=== PATIENT | female | born 1985 | race Two or more races ===

== ENCOUNTER 2024-04-03 13:42 | Emergency (ER) | payer MEDICAID, SELFPAY ==
[2024-04-03 14:01] VITALS: BP 169/97; PULSE 108; RESP 18; TEMP 37.1; O2SAT 97; BMI 32.8
--- NOTE | 2024-04-03 14:30 | PD.EDADULT ---
ED General RME/HPI General Chief complaint: Flu Like Symptoms Stated complaint: CHEST PAIN DUE TO COUGH Time Seen by Provider: 04/03/24 14:29 Arrival date/time: 04/03/24 13:42 CC: Cough runny nose sore throat HPI ongoing for the past 4 days no other family members are ill with similar symptoms denies headache fever chills diarrhea. Is a diabetic but is not taking medicines and not monitoring her sugars. Patient is nontoxic-appearing and not in any acute distress. Related Data Previous Rx's ?Medication ?Instructions ?Recorded metformin 500 mg tablet 500 mg PO BIDWMEAL #60 tabs 06/26/22 cetirizine 5 mg-pseudoephedrine ER 1 tab PO BID #14 tabs 04/03/24 120 mg tablet,extended release,12hr guaifenesin 100 mg/5 mL oral liquid 200 mg (10 mL) PO Q4H PRN cough 04/03/24 #473 mL metformin 1,000 mg tablet 1,000 mg PO BID #30 tabs 04/03/24 Allergies Allergy/AdvReac Type Severity Reaction Status Date / Time No Known Allergies Allergy Verified 04/03/24 13:44 Review of Systems Review of Systems Narrative Review of Systems: GEN: No fever, no chills, no weight loss EYES: No discharge, no visual changes, no pain HEENT: No ear pain, + congestion, + sore throat PULM: No shortness of breath, + cough, no congestion CV: No chest pain, no dyspnea on exertion, no palpitations GI: No nausea, no vomiting, no diarrhea, no pain, no constipation : No frequency, no urgency, no dysuria MUSC/SKEL: No joint pain, no back pain SKIN: No rash PSYCH: No hallucinations, no depression HEME/LYMPH: No easy bleeding or bruising tendencies NEURO: No weakness, no headache Past Medical History Past Medical History NEUROLOGIC: Negative Neurological Disorders CARDIAC: Positive Hypertension; Negative Cardiac Disorders or Congestive Heart Failure RESPIRATORY: Negative Chronic Obstructive Pulmonary Disease (COPD) GASTROINTESTINAL: Positive Gastrointestinal Disorders GENITOURINARY: Negative Genitourinary Disorders or Renal Disease MUSCULOSKELETAL: Negative Musculoskeletal Disorders ENDOCRINE: Positive Diabetes Mellitus Type 2; Negative Endocrine Disorders or Diabetes Mellitus Type 1 HEMATOLOGIC: Negative Blood Disorders OTHER HISTORY: Negative Autoimmune Disease Social History SMOKING STATUS: Current every day smoker SUBSTANCE USE: marijuana and crack/cocaine (Former) ED Exam Narrative Physical exam: [General: Obese not in any acute distress Head normocephalic HEENT: Eyes pupils are PERRLA EOMs are intact mouth: [place] moist membranes uvula is midline tonsils are flat no exudative patches posterior pharynx is nonerythematous nonedematous swallow symmetrical phonation is normal. Nose: No rhinorrhea or otorrhea mild erythema around the nares. Ears EACs are clear, TMs are visible no erythema or edema positive cone of light. Within acceptable limits Neck is supple nontender, swallow symmetrical phonation is normal Chest equal chest rise nontender to palpation Respiratory: Clear to auscultation no wheezes crackles or rubs CV: Rate rhythm is regular no murmurs rubs or clicks Abdomen is distended secondary to body habitus soft nontender no masses positive bowel sounds all 4 quadrants Back: No CVA tenderness no spinous process tenderness from cervical spine thoracic and lumbar spine Skin: Intact no petechiae rash induration ulceration or crepitus Extremities: Moving all extremity against resistance cap refill less than 2 seconds neurosensory intact Neuro: Awake alert oriented x3 Glascow coma 15 no focal deficits] Course Quality Measures none Vital Signs Vital signs: Vital Signs Temperature 98.7 F 04/03/24 14:01 Pulse Rate 108 H 04/03/24 14:01 Respiratory Rate 18 04/03/24 14:01 Blood Pressure 169/97 H 04/03/24 14:01 Pulse Oximetry (%) 97 04/03/24 14:01 Oxygen Delivery Method Room Air 04/03/24 14:01 MDM Patient data External records reviewed:: [facility] previous records Clinical information provided by:: patient Social determinants that could affect healthcare access:: none Patient has the following chronic illnesses:: Diabetes uncontrolled How is presenting disease/condition affected by chronic disease/condition?: uneffected by Evaluation data The following diagnostics were reviewed and interpreted by me:: other (specify) (None) Lab and/or radiology exams considered but not ordered:: None Interpretation Summary: None Medications Medications considered but not ordered:: None Medication administrations:: None Consultations Consultation(s) initiated? (list below): No Diagnosis Differential Diagnosis ED Complaint MDM: Strep pharyngitis viral URI pneumonia Most likely diagnosis given after review of the tests above:: URI Admission Indicated Admission indicated?: not indicated Explain why admission is indicated or not indicated:: Stable for outpatient follow-up Admission Request Was there a request for admission?: No Disposition Plan Disposition Plan: Discharge Discharge Attestation Discharge Attestation: The patient and all family members were given an opportunity to ask questions and understood the discharge instructions. Discharge instructions specifically effects, indications for sooner follow up or return to the emergency department, and the expected course of current diagnosis. Patient condition: Stable Medical Decision Making Differential Diagnosis Differential Diagnosis: Strep pharyngitis viral URI pneumonia Discharge Plan Plan Patient Disposition: HOME (Self Care) Patient condition on transfer: Stable Prescriptions/Referrals Prescriptions/Med Rec: New metformin 1,000 mg tablet 1,000 mg PO BID Qty: 30 1RF cetirizine-pseudoephedrine 5-120 mg tablet extended release 12 hr 1 tab PO BID Qty: 14 0RF guaifenesin 100 mg/5 mL liquid 200 mg PO Q4H PRN (Reason: cough) Qty: 473 0RF No Action metformin 500 mg tablet 500 mg PO BIDWMEAL Qty: 60 0RF Problem List Clinical Impression: URI (upper respiratory infection) Patient/Caregiver Discharge Instructions Education Materials: ED URI, Viral, No Abx (Adult) Print Language: Romansh Stand Alone Forms: Anabella Award Info., Work/School Release, Patient Portal Info Letter MD Attestation Attestation The patient was seen by the midlevel practitioner. I, the co-signing physician, was present during the entire ER visit. While I did not physically examine the patient, I was available for consultation as needed.
== END 2024-04-03 14:57 | disposition home or self-care (01) ==
PROVIDERS: Emergency Provider Emergency Medicine; PCP Nurse Practitioner Family
DX: J06.9 Acute upper respiratory infection, unspecified (principal); F17.210 Nicotine dependence, cigarettes, uncomplicated
CPT/HCPCS: 99281

== ENCOUNTER 2024-04-04 23:50 | Emergency (ER) | payer MEDICAID, SELFPAY ==
[2024-04-04 23:51] VITALS: BMI 32.8
[2024-04-05 00:28] VITALS: BP 156/91; PULSE 110; RESP 20; TEMP 36.9; O2SAT 98
--- NOTE | 2024-04-05 00:49 | EDNOTE_ITS ---
Upper Respiratory Inf. RME/HPI General Chief Complaint: Flu Like Symptoms Stated Complaint: COUGH, THROAT PAIN, SOB Time Seen by Provider: 04/05/24 00:12 Arrival date/time: 04/04/24 23:50 RME / HPI RME / HPI Narrative: 38-year-old female presents for evaluation of shortness of breath and throat pain x 2 days. Patient is a poor historian. Patient was seen in the department yesterday with similar concerns and discharged with a diagnosis of acute pharyngitis. She reports that her symptoms were unimproved today following Benadryl, Mucinex, TheraFlu x 2 hours prior to arrival to the ED. She denies chest pain, ear pain, fever, chills, and neck pain. MD Complaint: fever Related Data Previous Rx's ?Medication ?Instructions ?Recorded metformin 500 mg tablet 500 mg PO BIDWMEAL #60 tabs 06/26/22 cetirizine 5 mg-pseudoephedrine ER 1 tab PO BID #14 tabs 04/03/24 120 mg tablet,extended release,12hr guaifenesin 100 mg/5 mL oral liquid 200 mg (10 mL) PO Q4H PRN cough 04/03/24 #473 mL metformin 1,000 mg tablet 1,000 mg PO BID #30 tabs 04/03/24 Allergies Allergy/AdvReac Type Severity Reaction Status Date / Time No Known Allergies Allergy Verified 04/03/24 13:44 Review of Systems Constitutional Constitutional: Denies chills, Reports fatigue, Denies fever(s) and Denies headache(s) ENT Ears, Nose, Mouth, and Throat: Denies dental pain, Denies dizziness, Reports dy sphagia, Denies ear discharge, Denies otalgia, Denies headache(s), Denies neck pain, Reports odynophagia, Reports sore throat and Denies tongue swelling Cardiovascular Cardiovascular: Denies chest pain, Denies dyspnea and Denies leg edema Respiratory Respiratory: Denies cough, Denies dyspnea, Denies hemoptysis, Denies stridor and Denies wheezing Gastrointestinal Gastrointestinal: Denies change in bowel habits, Reports dysphagia and Reports odynophagia Genitourinary Genitourinary: Denies dysuria Musculoskeletal Musculoskeletal: Denies back pain and Denies neck pain Integumentary/Breasts Skin/Breast: Denies rash Neurologic Neurologic: Denies convulsions, Denies dizziness and Denies headache(s) Endocrine Endocrine: Reports fatigue Allergic/Immunologic Allergic/Immunologic: Denies tongue swelling and Denies wheezing Past Medical History Past Medical History NEUROLOGIC: Negative Neurological Disorders CARDIAC: Positive Hypertension; Negative Cardiac Disorders or Congestive Heart Failure RESPIRATORY: Negative Chronic Obstructive Pulmonary Disease (COPD) GASTROINTESTINAL: Positive Gastrointestinal Disorders GENITOURINARY: Negative Genitourinary Disorders or Renal Disease MUSCULOSKELETAL: Negative Musculoskeletal Disorders ENDOCRINE: Positive Diabetes Mellitus Type 2; Negative Endocrine Disorders or Diabetes Mellitus Type 1 HEMATOLOGIC: Negative Blood Disorders OTHER HISTORY: Negative Autoimmune Disease Social History SMOKING STATUS: Current every day smoker SUBSTANCE USE: marijuana and crack/cocaine (Former) ED Exam General General appearance: Present alert, in no apparent distress, appears intoxicated and anxious Head Head exam: Present atraumatic and normocephalic Eye Eye exam: Present normal appearance, EOMI and conjunctival injection ENT ENT exam: Present mucous membranes moist, TM's normal bilaterally and normal external ear exam Expanded ENT Exam Mouth exam: Present tongue normal; Absent lip swelling Throat exam: Present tonsillar erythema; Absent tonsillomegaly, tonsillar exudate, R peritonsillar mass, L peritonsillar mass or muffled voice Neck Neck exam: Present normal inspection, full ROM and trachea midline; Absent lymphadenopathy Chest Chest inspection: Present normal inspection and symmetric chest wall rise Respiratory Respiratory exam: Present normal lung sounds bilaterally; Absent respiratory distress, wheezes, stridor or accessory muscle use Cardiovascular Cardiovascular exam: Present tachycardia and +S1 Abdominal Exam Abdominal exam: Present soft; Absent distention Extremities Exam Extremities exam: Present normal inspection, full ROM and normal capillary refill Back Exam Back exam: Present normal inspection and full ROM Neurological Exam Neurological exam: Present alert and normal gait Psychiatric Psychiatric exam: Present anxious Skin Skin exam: Present warm, dry and normal color; Absent cyanosis Course Quality Measures none Orders Category Date Time Status Bedside COVID-19 Antigen Test NOW Care 04/05/24 00:44 Completed Bedside Influenza A&B Antigen Test NOW Care 04/05/24 00:44 Completed Drug Screen,Urine Stat Lab 04/05/24 01:03 Completed Reevaluation(s) Reevaluation #1: Patient eloped from the emergency department during treatment. Time: 01:29 Vital Signs Vital signs: Vital Signs Temperature 98.5 F 04/05/24 00:28 Pulse Rate 110 H 04/05/24 00:28 Respiratory Rate 20 04/05/24 00:28 Blood Pressure 156/91 H 04/05/24 00:28 Pulse Oximetry (%) 98 04/05/24 00:28 Oxygen Delivery Method Room Air 04/05/24 00:28 Pulse ox 98% on room air, within normal limits. Upper Respiratory Infection MDM Narrative MDM Narrative:: PT ELOPED FROM ED DURING EVALUATION AND TREATMENT. 38-year-old female presented for evaluation of persistent throat pain. Patient was seen in the department recently and diagnosed with acute pharyngitis. Vital signs significant for tachycardia otherwise no evidence of respiratory distress which is reassuring. Patient nontoxic-appearing with clear breath sounds bilaterally and no evidence of angioedema or anaphylaxis. No peritonsillar exud ate, no muffled voice therefore low concern for retropharyngeal abscess and peritonsillar abscess. More concern for viral illness given the patient presentation, however unfortunately the patient eloped from the emergency department during evaluation and treatment. Patient data External records reviewed:: [facility] previous records Clinical information provided by:: patient and friend Social determinants that could affect healthcare access:: none Patient has the following chronic illnesses:: Diabetes. How is presenting disease/condition affected by chronic disease/condition?: uneffected by Evaluation data The following diagnostics were reviewed and interpreted by me:: lab results Lab and/or radiology exams considered but not ordered:: Chest x-ray considered not ordered. Labs ordered. Interpretation Summary: Patient eloped during evaluation and treatment. Medications / Prescriptions Medications or Prescriptions considered but not ordered:: Patient eloped during evaluation and treatment. Medication administrations:: Patient eloped during evaluation and treatment. Consultations Consultation(s) initiated? (list below): No Diagnosis Upper Respiratory Differential Diagnosis: upper respiratory infection, viral infection, influenza and pharyngitis Most likely diagnosis given after review of the tests above:: Patient eloped during evaluation and treatment. Admission Indicated Admission indicated?: not indicated Admission Request Was there a request for admission?: No Disposition Plan Disposition Plan: other (specify) (Patient eloped from the emergency department during evaluation and treatment.) Discharge Plan Plan Patient Disposition: Elopement Disposition Comment: stable Prescriptions/Referrals Prescriptions/Med Rec: No Action metformin 500 mg tablet 500 mg PO BIDWMEAL Qty: 60 0RF metformin 1,000 mg tablet 1,000 mg PO BID Qty: 30 1RF cetirizine-pseudoephedrine 5-120 mg tablet extended release 12 hr 1 tab PO BID Qty: 14 0RF guaifenesin 100 mg/5 mL liquid 200 mg PO Q4H PRN (Reason: cough) Qty: 473 0RF Referrals: No Primary/Family,Physician [Primary Care Provider] - In 1 week Problem List Clinical Impression: Pharyngitis Patient/Caregiver Discharge Instructions Education Materials: ED Pharyngitis, Report Pending Print Language: Ukrainian PA/MARKETING WRITER Supervising Physician PA/MARKETING WRITER Supervising Physician: Dr. Bradshaw
--- NOTE | 2024-04-05 01:27 | PC.NURSE ---
PT LEFT, REPORTS FEELING BETTER . DOES NOT WANT TO WAIT FOR RESULTS. PT INFORMED TO RETURN FOR WORSENING OF SYMPTOMS.
[2024-04-05 01:44] LABS: Amphetamine/Methamp Scrn,U Positive (Negative); Barbiturate Screen,Urine Negative (Negative); Benzodiazepines Screen,Urine Negative (Negative); Benzoylecgonine Screen, Ur Negative (Negative); Fentanyl Screen,Urine Negative (Negative); Opiate Screen,Urine Negative (Negative); THC Screen,Urine Negative (Negative)
== END 2024-04-05 01:27 | disposition left against medical advice (07) ==
PROVIDERS: Physician Assistant; Emergency Provider Emergency Medicine
DX: J02.9 Acute pharyngitis, unspecified (principal); F17.210 Nicotine dependence, cigarettes, uncomplicated
CPT/HCPCS: 80307; 99281

== ENCOUNTER 2024-05-31 09:36 | Emergency (ER) | payer MEDICAID, SELFPAY ==
[2024-05-31 09:37] VITALS: BMI 30.7
--- NOTE | 2024-05-31 10:07 | XR_ITS ---
Examination: PA lateral chest 2 views TECHNIQUE: Upright PA lateral chest 2 views Exam date and time: May 31, 2024 1024 hours INDICATIONS: Coughing chest pain beginning 4 days ago. FINDINGS: Early bibasilar pneumonia. Normal heart size The osseous structures are intact IMPRESSION: Early bibasilar pneumonia
[2024-05-31 10:13] VITALS: BP 143/88; PULSE 101; RESP 22; TEMP 37.1; O2SAT 95; BMI 33.2
[2024-05-31 10:57] LABS: Strep A Rapid Negative (Negative)
--- NOTE | 2024-05-31 11:21 | EDNOTE_ITS ---
<Statement entered by Blanca Carney MD - 06/04/24 09:17> As co-signing physician, I was present and available for consult prn. I concur with the plan and care as documented by the midlevel provider. Upper Respiratory Inf. RME/HPI General Chief Complaint: Flu Like Symptoms Stated Complaint: COUGH, CHEST CONGESTION, DIZZY Time Seen by Provider: 05/31/24 09:39 Arrival date/time: 05/31/24 09:36 38-year-old female with medical history significant for diabetes presents emergency room today complaints of cough, congestion and bodyaches ongoing for the last couple of days Limitations: no limitations Related Data Previous Rx's ?Medication ?Instructions ?Recorded metformin 500 mg tablet 500 mg PO BIDWMEAL #60 tabs 06/26/22 cetirizine 5 mg-pseudoephedrine ER 1 tab PO BID #14 tabs 04/03/24 120 mg tablet,extended release,12hr guaifenesin 100 mg/5 mL oral liquid 200 mg (10 mL) PO Q4H PRN cough 04/03/24 #473 mL metformin 1,000 mg tablet 1,000 mg PO BID #30 tabs 04/03/24 azithromycin 500 mg tablet See Rx Instructions PO .COMPLEX #6 05/31/24 tabs benzonatate 100 mg capsule 100 mg PO TID #14 caps 05/31/24 ibuprofen 600 mg tablet 600 mg PO Q6H #30 tabs 05/31/24 Allergies Allergy/AdvReac Type Severity Reaction Status Date / Time No Known Allergies Allergy Verified 05/31/24 09:40 Review of Systems Review of Systems Systems Reviewed: All systems reviewed, normal except as documented Constitutional Constitutional: Reports system reviewed and no additional complaints, except as documented, Denies fever(s) and Denies headache(s) Eyes Eyes: Reports system reviewed and no additional complaints, except as documented and Denies blurry vision ENT Ears, Nose, Mouth, and Throat: Reports system reviewed and no additional complaints, except as documented, Denies headache(s), Reports nasal congestion and Reports nasal discharge Cardiovascular Cardiovascular: Reports system reviewed and no additional complaints, except as documented, Denies chest pain and Denies dyspnea Respiratory Respiratory: Reports system reviewed and no additional complaints, except as documented, Denies chest congestion, Denies cough and Denies dyspnea Gastrointestinal Gastrointestinal: Reports system reviewed and no additional complaints, except as documented and Denies abdominal pain Integumentary/Breasts Skin/Breast: Reports system reviewed and no additional complaints, except as documented and Denies rash Neurologic Neurologic: Reports system reviewed and no additional complaints, except as documented, Reports as per HPI and Denies headache(s) Past Medical History Past Medical History NEUROLOGIC: Negative Neurological Disorders CARDIAC: Negative Cardiac Disorders ED Exam General Limitations: Present no limitations General appearance: Present alert and in no apparent distress Head Head exam: Present atraumatic, normocephalic and normal inspection Eye Eye exam: Present normal appearance, PERRL and EOMI; Absent conjunctival injection ENT ENT exam: Present normal exam, normal oropharynx and mucous membranes moist Neck Neck exam: Present normal inspection, full ROM and trachea midline Chest Chest inspection: Present normal inspection and symmetric chest wall rise Respiratory Respiratory exam: Present normal lung sounds bilaterally; Absent respiratory distress Cardiovascular Cardiovascular exam: Present regular rate, normal rhythm and normal heart sounds Abdominal Exam Abdominal exam: Present soft and normal bowel sounds; Absent distention, tenderness, guarding, rebound or rigidity Extremities Exam Extremities exam: Present normal inspection and full ROM Back Exam Back exam: Present normal inspection and full ROM Neurological Exam Neurological exam: Present alert, oriented X3, CN II-XII intact, normal gait and reflexes normal; Absent motor sensory deficit Psychiatric Psychiatric exam: Present normal affect and normal mood Skin Skin exam: Present warm, dry, intact and normal color; Absent rash Course Quality Measures none Orders Category Date Time Status Bedside Influenza A&B Antigen Test NOW Care 05/31/24 10:07 Completed XR chest 2V Stat Exams 05/31/24 10:07 Completed Strep A Rapid Stat Lab 05/31/24 10:06 Completed Vital Signs Vital signs: Vital Signs Temperature 98.7 F 05/31/24 10:13 Pulse Rate 101 H 05/31/24 10:13 Respiratory Rate 22 H 05/31/24 10:13 Blood Pressure 143/88 H 05/31/24 10:13 Pulse Oximetry (%) 95 05/31/24 10:13 Oxygen Delivery Method Room Air 05/31/24 10:13 O2 saturation 95% room air within normal limits Upper Respiratory Infection MDM Narrative MDM Narrative:: 38-year-old female with medical history significant for diabetes presents emergency room today complaints of cough, congestion and bodyaches ongoing for the last couple of days On exam patient well-appearing patient does not appear ill or toxic patient's not appear in acute distress Patient check for flu which came back negative Chest x-ray consistent with bibasilar pneumonia Patient be treated with cough medicine and antibiotics At time of discharge patient has no tachypnea no dyspnea no increased work of breathing and is well-appearing Patient discharged home in no distress to follow-up with primary care doctor in the next 24 to 48 hours and for any worsening symptoms to return to the ER immediately Patient data External records reviewed:: [facility] previous records Clinical information provided by:: patient Social determinants that could affect healthcare access:: none Patient has the following chronic illnesses:: None How is presenting disease/condition affected by chronic disease/condition?: no chronic disease Evaluation data The following diagnostics were reviewed and interpreted by me:: lab results and radiology exam(s) Lab and/or radiology exams considered but not ordered:: Labs and radiology obtained Interpretation Summary: Reviewed by me Medications / Prescriptions Medications or Prescriptions considered but not ordered:: Given Medication administrations:: Given Consultations Consultation(s) initiated? (list below): No Diagnosis Upper Respiratory Differential Diagnosis: upper respiratory infection, viral infection and pharyngitis Most likely diagnosis given after review of the tests above:: Viral illness Admission Indicated Admission indicated?: not indicated Admission Request Was there a request for admission?: No Disposition Plan Disposition Plan: Discharge Discharge Attestation Discharge Attestation: The patient and all family members were given an opportunity to ask questions and understood the discharge instructions. Discharge instructions specifically effects, indications for sooner follow up or return to the emergency department, and the expected course of current diagnosis. Patient condition: Stable Discharge Plan Plan Patient Disposition: HOME (Self Care) Disposition Comment: Stable Prescriptions/Referrals Prescriptions/Med Rec: New benzonatate 100 mg capsule 100 mg PO TID Qty: 14 0RF ibuprofen 600 mg tablet 600 mg PO Q6H Qty: 30 0RF azithromycin 500 mg tablet See Rx Instructions .ROUTE .COMPLEX Qty: 6 0RF Rx Instructions: take 500 mg today (day 1), then 250 mg for 4 days (days 2-5) No Action metformin 500 mg tablet 500 mg PO BIDWMEAL Qty: 60 0RF metformin 1,000 mg tablet 1,000 mg PO BID Qty: 30 1RF cetirizine-pseudoephedrine 5-120 mg tablet extended release 12 hr 1 tab PO BID Qty: 14 0RF guaifenesin 100 mg/5 mL liquid 200 mg PO Q4H PRN (Reason: cough) Qty: 473 0RF Referrals: No Primary/Family,Physician [Primary Care Provider] - 06/01/24 Problem List Clinical Impression: Pneumonia, Cough Patient/Caregiver Discharge Instructions Education Materials: ED Pneumonia (Adult) Additional Instructions: Please follow up with your primary care doctor in the next 24-48hrs for any worsening symptoms return here immediately Print Language: Honduran Stand Alone Forms: Anabella Award Info., Work/School Release, Patient Portal Info Letter PA/KITCHEN OPERATOR Supervising Physician PA/KITCHEN OPERATOR Supervising Physician: Dr. carney
== END 2024-05-31 12:15 | disposition home or self-care (01) ==
PROVIDERS: Nurse Practitioner Primary Care; Emergency Provider Emergency Medicine
DX: J18.9 Pneumonia, unspecified organism (principal); E11.9 Type 2 diabetes mellitus without complications
CPT/HCPCS: 71046; 87400; 87651; 99283

== ENCOUNTER 2024-07-10 14:43 | Emergency (ER) | payer MEDICAID, SELFPAY ==
--- NOTE | 2024-07-10 15:34 | PD.EDRME ---
Rapid Medical Screening Exam RME Arrival date/time: 07/10/24 14:43 CC: Week dizzy lightheaded diarrhea HPI onset today has a history of diabetes hypertension. Denies nausea vomiting. Chief Complaint: Weakness Time Seen by Provider: 07/10/24 15:32
[2024-07-10 15:37] VITALS: BP 91/67; PULSE 115; RESP 18; TEMP 37.2; O2SAT 98; BMI 32.9
[2024-07-10 16:13] LABS: Basophils % (Auto) 0 % (0-2.5); Eosinophils % (Auto) 0 % (0-10); Hematocrit 37.4 % (36.0-46.0); Immature Granulocytes % (Auto) 1 % (0-0); Immature Granulocytes Auto 0.07 Thou/mm3 (0.00-0.00); Lymphocytes # (Auto) 1.5 Thou/mm3 (1.0-4.8); Lymphocytes % (Auto) 11 % (10-50); Mean Corpuscular HGB Conc 32.1 g/dl (31.0-37.0); Mean Corpuscular Hemoglobin 23.3 pg (25.0-35.0); Mean Corpuscular Volume 73 fL (80-100); Monocytes # (Auto) 1.2 Thou/mm3 (0.0-0.8); Monocytes % (Auto) 9 % (0-12); Neutrophils # (Auto) 10.4 Thou/mm3 (1.8-7.7); Neutrophils % (Auto) 79 % (37-80); Nucleated Red Blood Cell % 0 /100 WBC (0); Platelet Count 509 Thou/mm3 (140-440); RDW Standard Deviation 42.5 fL (36.4-46.3); Red Blood Count 5.15 Miln/mm3 (4.00-5.20); White Blood Count 13.2 Thou/mm3 (3.6-11.0)
[2024-07-10 16:40] LABS: Alanine Aminotransferase 14 U/L (10-49); Albumin, Serum 4.4 gm/dL (3.5-5.0); Albumin/Globulin Ratio 1.3 (1.2-2.2); Alkaline Phosphatase 192 U/L (46-116); Anion Gap 11 (7-16); BUN/Creatinine Ratio 16 Ratio (12-20); Bilirubin,Total 1.6 mg/dL (0.3-1.2); Blood Urea Nitrogen 19 mg/dL (9-23); Calcium 9.5 mg/dL (8.3-10.6); Calcium (Corrected) 9.5 mg/dL (8.5-10.1); Carbon Dioxide 27.4 mMol/L (20.0-31.0); Chloride 89 mMol/L (98-107); Creatinine (Component) 1.2 mg/dL (0.6-1.3); Estimated Creatinine Clearance 71.4 mL/min (>60); Globulin 3.5 gm/dL (2.3-3.5); Glucose 345 mg/dL (74-106); Osmolality,Calculated 271 (275-295); Potassium 4.4 mMol/L (3.4-5.1); Sodium 127 mMol/L (136-145); Total Protein 7.9 gm/dL (5.7-8.2); eGFR 59 See Note
[2024-07-10 16:42] LABS: Aspartate Amino Transferase 16 U/L (0-34)
[2024-07-10] MEDS: SODIUM CHLORIDE 0.9% 1000 ML 1,000 ML 999 ML IV (17:10)
--- NOTE | 2024-07-10 19:27 | PC.NURSE ---
patient signed out AMA at 1925. Provider was notified.
== END 2024-07-10 19:45 | disposition left against medical advice (07) ==
PROVIDERS: Registered Nurse General Practice; Emergency Provider Emergency Medicine
DX: R53.1 Weakness (principal); R42 Dizziness and giddiness; R19.7 Diarrhea, unspecified; Z53.29 Procedure and treatment not carried out because of patient's decision for other reasons
CPT/HCPCS: 36415; 80053; 81001; 85025; 87400; 87811; 96360; 99284; J7030

== ENCOUNTER 2024-08-09 03:19 | Emergency (ER) | payer MEDICAID, SELFPAY ==
[2024-08-09 03:26] VITALS: BP 104/72; PULSE 110; RESP 20; TEMP 36.7; O2SAT 99
--- NOTE | 2024-08-09 03:38 | XR_ITS ---
Examination: PA lateral chest 2 views TECHNIQUE: Upright PA lateral chest 2 views Exam date 9: August 09, 2024 1442 hours Comparison May 31, 2024 INDICATIONS: Chest pain today. FINDINGS: Normal heart size Lungs are clear. Osseous structures are intact IMPRESSION: No active disease
--- NOTE | 2024-08-09 03:40 | PD.EDRME ---
Rapid Medical Screening Exam RME Arrival date/time: 08/09/24 03:19 Chief Complaint: General Adult/Misc Complain Time Seen by Provider: 08/09/24 03:22 Vital signs: Vital Signs Temperature 98.0 F 08/09/24 03:26 Pulse Rate 110 H 08/09/24 03:26 Respiratory Rate 20 08/09/24 03:26 Blood Pressure 104/72 08/09/24 03:26 Pulse Oximetry (%) 99 08/09/24 03:26 Oxygen Delivery Method Room Air 08/09/24 03:26 Vital signs reviewed by provider: Yes RME Narrative: 39-year-old female with past medical history presents for evaluation of hyperglycemia at home for the last several days. Reports home meter readings in the 400s. Endorses headache and tingling to her bilateral feet.
[2024-08-09] MEDS: SODIUM CHLORIDE 0.9% 1000 ML 1,000 ML 999 ML IV (03:52)
--- NOTE | 2024-08-09 03:57 | EDNOTE_ITS ---
ED General RME/HPI General Chief complaint: General Adult/Misc Complain Stated complaint: HIGH BLOOD SUGAR, HEADACHE,FEET THROBBING Time Seen by Provider: 08/09/24 03:22 Arrival date/time: 08/09/24 03:19 RME / HPI RME / HPI narrative: 39-year-old female with past medical history presents for evaluation of hyperglycemia at home for the last several days. Reports home meter readings in the 400s. Endorses headache and tingling to her bilateral feet. ------ This section includes all my notes and documentations, including HPI, PE, and ED course. Dayne Cleary MD HPI: 39yo female with a history of DM, HTN presents to the ED for a chief complaint of elevated blood sugar. Patient states she's been taking all of her medications as prescribed except for her insulin, which she has not taken in weeks . She states she's been having a headache, heaviness in her shoulders, blurry vision, generalized weakness, and intermittent N/V for the last 2-3 days. Patient denies any abdominal pain, UTI symptoms or any other associated symptoms. No other complaints reported. ROS: All negative except as documented in HPI. Physical Exam: General: Alert and oriented. No acute distress when remaining still. Eyes: Conjunctivae and lids clear. ENT: No nasal congestion. Neck: Supple. Heart: RRR. Lungs: No respiratory distress. Good air movement. No rhonchi, wheezing, rales. Abdomen: Soft and nontender. Legs: No clubbing, cyanosis, edema. Skin: Warm and dry. Neuro: Alert and oriented X 3. I reviewed all diagnostic test results. My interpretation of the EKG is sinus rhythm with no acute ST?T changes. My interpretation of the chest x-ray is no acute findings. Blood tests remarkable for hyperglycemia with no DKA. At this point, diagnoses include hyperglycemia. Treatment here included IV fluid, insulin, Zofran, and two Tylenol #3. Significant improvement noted. Recommended continued outpatient care. Based on my best medical judgment, made decision no further evaluation or treatment indicated at this time. Patient understands and agrees to the discharge instructions customized and printed, see below. Discharge Instructions from Dr. Cleary printed for you: 1. After evaluation, your sugar levels were high due to not using your insulin as prescribed. 2. Decrease high sugar and high carbohydrate diet. And use your insulin as prescribed. 3. See your private doctor on 08/10/2024 for recheck and further care, including good management of your diabetes. Ask to review all test results and official radiology reports, to make sure you receive all necessary follow-ups and monitoring. 4. Seek immediate medical care with worsening or with any concerns. Dayne Cleary MD Related Data Previous Rx's ?Medication ?Instructions ?Recorded metformin 500 mg tablet 500 mg PO BIDWMEAL #60 tabs 06/26/22 cetirizine 5 mg-pseudoephedrine ER 1 tab PO BID #14 ta bs 04/03/24 120 mg tablet,extended release,12hr guaifenesin 100 mg/5 mL oral liquid 200 mg (10 mL) PO Q4H PRN cough 04/03/24 #473 mL metformin 1,000 mg tablet 1,000 mg PO BID #30 tabs azithromycin 500 mg tablet See Rx Instructions PO .COM PLEX #6 05/31/24 tabs benzonatate 100 mg capsule 100 mg PO TID #14 caps 05/18 09/09 ibuprofen 600 mg tablet 600 mg PO Q6H #30 tabs 05/31 Allergies Allergy/AdvReac Type Severity Reaction Status Date / Time No Known Allergies Allergy Verified 05/31/24 09:40 Review of Systems Review of Systems Systems Reviewed: All systems reviewed, normal except as documented Past Medical History Past Medical History NEUROLOGIC: Negative Neurological Disorders CARDIAC: Positive Hypertension; Negative Cardiac Disorders or Congestive Heart Failure RESPIRATORY: Negative Chronic Obstructive Pulmonary Disease (COPD) GASTROINTESTINAL: Positive Gastrointestinal Disorders GENITOURINARY: Negative Genitourinary Disorders or Renal Disease MUSCULOSKELETAL: Negative Musculoskeletal Disorders ENDOCRINE: Positive Diabetes Mellitus Type 2; Negative Endocrine Disorders or Diabetes Mellitus Type 1 HEMATOLOGIC: Negative Blood Disorders OTHER HISTORY: Negative Autoimmune Disease Social History SMOKING STATUS: Light (< 1 pack/day) SUBSTANCE USE: marijuana and crack/cocaine (Former) ED Exam Narrative Physical exam: As noted in HPI. Course Course Course Narrative: CXR is ordered for determining the etiology of weakness. Quality Measures none Orders Category Date Time Status Bedside COVID-19 Antigen Test NOW Care 08/09/24 03:53 Completed Bedside Influenza A&B Antigen Test NOW Care 08/09/24 03:53 Completed EKG (ED ONLY) *Do not use* NOW Care 08/09/24 03:38 Completed Glucose [Bedside Blood Glucose] NOW Care 08/09/24 03:33 Completed Insert IV NOW Care 08/09/24 03:39 Completed Straight [In and Out Catheter] X1 Care 08/09/24 03:58 Completed EKG (ED Only) Stat Exams 08/09/24 03:38 Ordered XR chest 2V Stat Exams 08/09/24 03:38 Completed A1C [Glycohemoglobin w (eAG)] Stat Lab 08/09/24 04:39 Completed B-Type Natriuretic Peptide Stat Lab 08/09/24 04:39 Completed Beta Hydroxybutyrate Stat Lab 08/09/24 04:39 Completed CBC Stat Lab 08/09/24 04:39 Completed Comprehensive Metabolic Panel Stat Lab 08/09/24 04:39 Completed Magnesium Stat Lab 08/09/24 04:39 Completed Partial Thromboplastin Time Stat Lab 08/09/24 04:39 Completed Prothrombin Time with INR Stat Lab 08/09/24 04:39 Completed TSH [Thyroid Stimulating Hormone] Stat Lab 08/09/24 04:39 Completed Troponin I Stat Lab 08/09/24 04:39 Completed VBG [Venous Blood Gas] Stat Lab 08/09/24 04:39 Completed ACETAMINOPHEN w/COD 300-30 [Tylenol w/Cod #3] Med 08/09/24 03:58 Discontinued 2 tab PO X1 ONE Insulin Regular Med 08/09/24 03:58 Discontinued 10 unit IV X1 ONE Ondansetron Inj [Zofran Inj] Med 08/09/24 03:58 Discontinued 4 mg IV X1 ONE Sodium Chloride 0.9% 1000 ml [Ns] 1,000 ml Med 08/09/24 03:40 Discontinued IV 999 mls/hr Vital Signs Vital signs: Vital Signs Temperature 98.0 F 08/09/24 03:26 Pulse Rate 110 H 08/09/24 03:26 Respiratory Rate 20 08/09/24 03:26 Blood Pressure 104/72 08/09/24 03:26 Pulse Oximetry (%) 99 08/09/24 03:26 Oxygen Delivery Method Room Air 08/09/24 03:26 [facility] Patient data External records reviewed:: [facility] previous records (Per chart review, patient was seen here on 05/31/24 for a cough.) Clinical information provided by:: patient Social determinants that could affect healthcare access:: none Patient has the following chronic illnesses:: DM, HTN How is presenting disease/condition affected by chronic disease/condition?: c aused by Evaluation data The following diagnostics were reviewed and interpreted by me:: lab results, radiology exam(s) and EKG tracing(s) Lab and/or radiology exams considered but not ordered:: none Interpretation Summary: Hyperglycemia with no DKA Medications Medications considered but not ordered:: none Medication administrations:: Medication Administration History Discontinued Medications Acetaminophen/Codeine Phosphate (Acetaminophen W/Cod 300-30 Tablet) 2 tab PO X1 ONE Stop: 08/09/24 03:59 Last Admin: 08/09/24 04:25 Dose: 2 tab Documented By: SCOUT Sodium Chloride (Ns) 1,000 mls @ 999 mls/hr IV .Q1H1M ONE Stop: 08/09/24 04:40 Last Infusion: 08/09/24 05:03 Dose: Infused Documented By: Admin: 08/09/24 03:52 Dose: 999 mls/hr Documented By: LILLIOR Insulin Human Regular (Insulin Hum Regular 1 Unit/0.01 Ml (Per Unit)) 10 unit IV X1 ONE Stop: 08/09/24 03:59 Last Admin: 08/09/24 04:26 Dose: 10 unit Documented By: SCOUT Co-signed By: TRE Ondansetron HCl (Ondansetron Inj 2 Mg/Ml Inj 2 Ml) 4 mg IV X1 ONE; Protocol Stop: 08/09/24 03:59 Last Admin: 08/09/24 04:25 Dose: 4 mg Documented By: SCOUT NS, Tylenol with Codeine, Insulin, Zofran Consultations Consultation(s) initiated? (list below): No Diagnosis Differential Diagnosis ED Complaint MDM: DKA, dehydration, electrolyte abnormalities, DE, UTI, pneumonia Most likely diagnosis given after review of the tests above:: Hyperglycemia without DKA Admission Indicated Admission indicated?: not indicated Explain why admission is indicated or not indicated:: With significant improvement, there was no indication for admission. Admission Request Was there a request for admission?: No Disposition Plan Disposition Plan: Discharge Discharge Attestation Discharge Attestation: The patient and all family members were given an opportunity to ask questions and understood the discharge instructions. Discharge instructions specifically effects, indications for sooner follow up or return to the emergency department, and the expected course of current diagnosis. Patient condition: Stable Medical Decision Making MDM Narrative MDM Narrative: Scribe Attestation: 08/09/24 - I, Carla Newberry am scribing for and in the presence of Dr. Cleary. Differential Diagnosis Differential Diagnosis: DKA, dehydration, electrolyte abnormalities, DE, UTI, pneumonia Lab Data 08/09/24 04:39 08/09/24 04:39 Labs: Lab Results 08/09/24 Range/Units 04:39 WBC 8.6 (3.6-11.0) Thou/mm3 RBC 3.99 L (4.00-5.20) Miln/mm3 Hgb 9.9 L (12.0-16.0) g/dL Hct 30.0 L (36.0-46.0) % MCV 75 L (80-100) fL MCH 24.8 L (25.0-35.0) pg MCHC 33.0 (31.0-37.0) g/dl RDW Std Deviation 45.2 (36.4-46.3) fL Plt Count 331 D (140-440) Thou/mm3 Neut % (Auto) 54 (37-80) % Lymph % (Auto) 39 (10-50) % [place] % (Auto) 3 (0-12) % Eos % (Auto) 3 (0-10) % Baso % (Auto) 0 (0-2.5) % Neut # (Auto) 4.7 (1.8-7.7) Thou/mm3 Lymph # (Auto) 3.4 (1.0-4.8) Thou/mm3 [place] # (Auto) 0.3 (0.0-0.8) Thou/mm3 Eos # (Auto) 0.3 (0.0-0.5) Thou/mm3 Baso # (Auto) 0.0 (0.0-0.2) Thou/mm3 Immature Gran # (Auto) 0.04 H (0.00-0.00) Thou/mm3 Absolute Nucleated RBC 0.00 (0.00-0.00) Thou/mm3 Immature Gran % 1 H (0-0) % Nucleated RBC % 0 (0) /100 WBC PT 10.2 (9.0-12.2) Seconds INR 0.9 (0.9-1.3) APTT 23.4 (22.0-36.0) Seconds VBG pH 7.42 (7.33-7.66) VBG pCO2 42 (36-56) mmHg VBG pO2 34 (15-58) mmHg VBG O2 Sat (Darian) 67 L (96-97) % VBG Base Excess 2 (-3-3) Sodium 134 L (136-145) mMol/L Potassium 3.4 (3.4-5.1) mMol/L Chloride 96 L (98-107) mMol/L Carbon Dioxide 28.1 (20.0-31.0) mMol/L Anion Gap 10 (7-16) BUN 40 H (9-23) mg/dL Creatinine 1.8 H (0.6-1.3) mg/dL Estim Creat Clear Calc 44.4 L (>60) mL/min eGFR 36 L (60 - ) See Note BUN/Creatinine Ratio 22 H (12-20) Ratio Glucose 261 H (74-106) mg/dL Estimated Ave Glu mg/dL 298 H (80-131) mg/dL Hemoglobin A1c 12.0 H (4.8-6.0) % Hgb Calculated Osmolality 286 (275-295) Calcium 8.6 (8.3-10.6) mg/dL Corrected Calcium 8.9 (8.5-10.1) mg/dL Magnesium 2.2 (1.6-2.6) mg/dL Total Bilirubin 0.6 (0.3-1.2) mg/dL AST 13 (0-34) U/L ALT 11 (10-49) U/L Alkaline Phosphatase 102 (46-116) U/L Troponin I < 0.002 (0.0-0.045) ng/mL B-Natriuretic Peptide < 20 (0-100) pg/mL Total Protein 6.4 (5.7-8.2) gm/dL Albumin 3.6 (3.5-5.0) gm/dL Globulin 2.8 (2.3-3.5) gm/dL Albumin/Globulin Ratio 1.3 (1.2-2.2) Beta-Hydroxybutyrate/Acetoacetate 0.1 (<0.6) mmol/L TSH 2.02 (0.55-4.78) uIU/mL Discharge Plan Plan Patient Disposition: HOME (Self Care) Prescriptions/Referrals Prescriptions/Med Rec: No Action metformin 500 mg tablet 500 mg PO BIDWMEAL Qty: 60 0RF metformin 1,000 mg tablet 1,000 mg PO BID Qty: 30 1RF cetirizine-pseudoephedrine 5-120 mg tablet extended release 12 hr 1 tab PO BID Qty: 14 0RF guaifenesin 100 mg/5 mL liquid 200 mg PO Q4H PRN (Reason: cough) Qty: 473 0RF benzonatate 100 mg capsule 100 mg PO TID Qty: 14 0RF ibuprofen 600 mg tablet 600 mg PO Q6H Qty: 30 0RF azithromycin 500 mg tablet See Rx Instructions .ROUTE .COMPLEX Qty: 6 0RF Rx Instructions: take 500 mg today (day 1), then 250 mg for 4 days (days 2-5) Problem List Clinical Impression: High blood sugar Patient/Caregiver Discharge Instructions Discharge Activity: activity as tolerated Education Materials: ED Diabetes with High Blood Sugar Additional Instructions: Discharge Instructions from Dr. Cleary printed for you: 1. After evaluation, your sugar levels were high due to not using your insulin as prescribed. 2. Decrease high sugar and high carbohydrate diet. And use your insulin as prescribed. 3. See your private doctor on 08/10/2024 for recheck and further care, including good management of your diabetes. Ask to review all test results and official radiology reports, to make sure you receive all necessary follow-ups and monitoring. 4. Seek immediate medical care with worsening or with any concerns. Print Language: Kyrgyz Stand Alone Forms: Anabella Award Info., Patient Portal Info Letter
[2024-08-09] MEDS: ONDANSETRON INJ 2 MG/ML INJ 2 ML 4 MG IV (04:25)
[2024-08-09] MEDS: ACETAMINOPHEN w/COD 300-30 TABLET 2 TAB PO (04:25)
[2024-08-09] MEDS: INSULIN HUM REGULAR 1 UNIT/0.01 ML (PER UNIT) 10 UNIT IV (04:26)
[2024-08-09 04:30] VITALS: BMI 36.1
[2024-08-09 04:48] LABS: Base Excess, Venous 2 (-3-3); O2 Saturation, Venous 67 % (96-97); PCO2, Venous 42 mmHg (36-56); PO2, Venous 34 mmHg (15-58); pH, Venous 7.42 (7.33-7.66)
[2024-08-09 04:50] LABS: Basophils % (Auto) 0 % (0-2.5); Eosinophils # (Auto) 0.3 Thou/mm3 (0.0-0.5); Eosinophils % (Auto) 3 % (0-10); Hemoglobin 9.9 g/dL (12.0-16.0); Immature Granulocytes % (Auto) 1 % (0-0); Immature Granulocytes Auto 0.04 Thou/mm3 (0.00-0.00); Lymphocytes # (Auto) 3.4 Thou/mm3 (1.0-4.8); Lymphocytes % (Auto) 39 % (10-50); Mean Corpuscular Hemoglobin 24.8 pg (25.0-35.0); Mean Corpuscular Volume 75 fL (80-100); Monocytes # (Auto) 0.3 Thou/mm3 (0.0-0.8); Monocytes % (Auto) 3 % (0-12); Neutrophils # (Auto) 4.7 Thou/mm3 (1.8-7.7); Neutrophils % (Auto) 54 % (37-80); Nucleated Red Blood Cell % 0 /100 WBC (0); Platelet Count 331 Thou/mm3 (140-440); RDW Standard Deviation 45.2 fL (36.4-46.3); Red Blood Count 3.99 Miln/mm3 (4.00-5.20); White Blood Count 8.6 Thou/mm3 (3.6-11.0)
[2024-08-09 04:51] LABS: Beta Hydroxybutyrate 0.1 mmol/L (<0.6)
[2024-08-09 05:06] LABS: INR 0.9 (0.9-1.3); Partial Thromboplastin Time 23.4 Seconds (22.0-36.0); Prothrombin Time 10.2 Seconds (9.0-12.2)
[2024-08-09 05:10] LABS: Alanine Aminotransferase 11 U/L (10-49); Albumin, Serum 3.6 gm/dL (3.5-5.0); Albumin/Globulin Ratio 1.3 (1.2-2.2); Alkaline Phosphatase 102 U/L (46-116); Anion Gap 10 (7-16); Aspartate Amino Transferase 13 U/L (0-34); BUN/Creatinine Ratio 22 Ratio (12-20); Bilirubin,Total 0.6 mg/dL (0.3-1.2); Blood Urea Nitrogen 40 mg/dL (9-23); Calcium 8.6 mg/dL (8.3-10.6); Calcium (Corrected) 8.9 mg/dL (8.5-10.1); Carbon Dioxide 28.1 mMol/L (20.0-31.0); Chloride 96 mMol/L (98-107); Creatinine (Component) 1.8 mg/dL (0.6-1.3); Estimated Creatinine Clearance 44.4 mL/min (>60); Globulin 2.8 gm/dL (2.3-3.5); Glucose 261 mg/dL (74-106); Magnesium 2.2 mg/dL (1.6-2.6); Osmolality,Calculated 286 (275-295); Potassium 3.4 mMol/L (3.4-5.1); Sodium 134 mMol/L (136-145); Thyroid Stimulating Hormone 2.02 uIU/mL (0.55-4.78); Total Protein 6.4 gm/dL (5.7-8.2); Troponin I < 0.002 ng/mL (0.0-0.045); eGFR 36 See Note
[2024-08-09 05:17] LABS: Glucose Estimated Average 298 mg/dL (80-131)
[2024-08-09 05:45] LABS: B-Type Natriuretic Peptide < 20 pg/mL (0-100)
[2024-08-09 05:46] VITALS: BP 91/62; PULSE 97; RESP 18; O2SAT 99
== END 2024-08-09 05:47 | disposition home or self-care (01) ==
LOC: SERX 06:31
PROVIDERS: Physician Assistant; Emergency Provider Emergency Medicine; PCP Nurse Practitioner Family
DX: E11.65 Type 2 diabetes mellitus with hyperglycemia (principal); I10 Essential (primary) hypertension
CPT/HCPCS: 36415; 71046; 80053; 80307; 81001; 81025; 82010; 82803; 83036; 83735; 83880; 84443; 84484; 85025; 85610; 85730; 87400; 87811; 93005; 96361; 96374; 99284; J1815; J2405; J7030; A9270

== ENCOUNTER 2024-12-23 06:37 | Emergency (ER) | payer MEDICAID, SELFPAY ==
[2024-12-23 06:38] VITALS: BMI 32.3
[2024-12-23 06:47] VITALS: BP 153/98; PULSE 120; RESP 18; TEMP 36.4; O2SAT 98
--- NOTE | 2024-12-23 07:07 | XR_ITS ---
Examination: Lumbar spine 3 views Technique AP lateral: Lateral lower lumbar spine 3 views Date and time on December 23, 2024 0714 hours INDICATIONS: Sudden onset back pain radiating 4 days ago. FINDINGS: No lumbar fracture Adequate alignment lumbar vertebral bodies on the lateral view Mild disc narrowing L4-L5 Moderate disc narrowing L5-S1 IMPRESSION: Moderate disc narrowing L5-S1
--- NOTE | 2024-12-23 07:14 | EDNOTE_ITS ---
<Statement entered by Blanca Carney MD - 12/23/24 15:16> As co-signing physician, I was present and available for consult prn. I concur with the plan and care as documented by the midlevel provider. ED Back Injury Pain RME/HPI General Chief Complaint: Back Pain/Injury Stated Complaint: BACK/ ABD PAIN X4DAYS Time Seen by Provider: 12/23/24 06:41 Source: patient Arrival date/time: 12/23/24 06:37 39-year-old female with no known medical history presents to the emergency room with a chief complaint of lower lumbar back pain and abdominal pain x 4 days Mode of arrival: ambulatory Limitations: no limitations Related Data Previous Rx's ?Medication ?Instructions ?Recorded metformin 500 mg tablet 500 mg PO BIDWMEAL #60 tabs 06/26/22 cetirizine 5 mg-pseudoephedrine ER 1 tab PO BID #14 ta bs 04/03/24 120 mg tablet,extended release,12hr guaifenesin 100 mg/5 mL oral liquid 200 mg (10 mL) PO Q4H PRN cough 04/03/24 #473 mL metformin 1,000 mg tablet 1,000 mg PO BID #30 tabs azithromycin 500 mg tablet See Rx Instructions PO .COM PLEX #6 05/31/24 tabs benzonatate 100 mg capsule 100 mg PO TID #14 caps 05/18 09/09 ibuprofen 600 mg tablet 600 mg PO Q6H #30 tabs 05/31 Allergies Allergy/AdvReac Type Severity Reaction Status Date / Time No Known Allergies Allergy Verified 05/31/24 09:40 Review of Systems Review of Systems Systems Reviewed: All systems reviewed, normal except as documented Constitutional Constitutional: Reports system reviewed and no additional complaints, except as documented, Denies fatigue, Denies fever(s), Denies headache(s) and Denies weakness Eyes Eyes: Reports system reviewed and no additional complaints, except as documented, Denies blurry vision and Denies change in vision ENT Ears, Nose, Mouth, and Throat: Reports system reviewed and no additional complaints, except as documented, Denies otalgia, Denies headache(s), Denies nasal congestion, Denies throat swelling and Denies vertigo Cardiovascular Cardiovascular: Reports system reviewed and no additional complaints, except as documented, Denies chest pain, Denies dyspnea and Denies dyspnea on exertion Respiratory Respiratory: Reports system reviewed and no additional complaints, except as documented, Denies chest congestion, Denies cough, Denies dyspnea, Denies dyspnea on exertion and Denies wheezing Gastrointestinal Gastrointestinal: Reports system reviewed and no additional complaints, except as documented, Reports abdominal pain, Reports cramping, Denies nausea and Denies vomiting Genitourinary Genitourinary: Reports system reviewed and no additional complaints, except as documented Musculoskeletal Musculoskeletal: Reports system reviewed and no additional complaints, except as documented and Reports back pain Integumentary/Breasts Skin/Breast: Reports system reviewed and no additional complaints, except as documented and Denies wounds Neurologic Neurologic: Reports system reviewed and no additional complaints, except as documented, Denies confusion, Denies headache(s), Denies lack of coordination, Denies vertigo and Denies weakness Psychiatric Psychiatric: Reports system reviewed and no additional complaints, except as documented, Denies anxiety, Denies confusion, Denies depression, Denies paranoia, Denies suicidal ideation and Denies tactile hallucinations Endocrine Endocrine: Reports system reviewed and no additional complaints, except as documented and Denies fatigue Hematologic/Lymphatic Hematologic/Lymphatic: Reports system reviewed and no additional complaints, except as documented and Denies lymphadenopathy Allergic/Immunologic Allergic/Immunologic: Reports system reviewed and no additional complaints, except as documented, Denies throat swelling, Denies urticaria and Denies wheezing ED Exam General Limitations: Present no limitations General appearance: Present alert and in no apparent distress Head Head exam: Present atraumatic Eye Eye exam: Present normal appearance, PERRL and EOMI ENT ENT exam: Present normal exam, normal oropharynx and mucous membranes moist Neck Neck exam: Present normal inspection, full ROM and trachea midline Chest Chest inspection: Present normal inspection and symmetric chest wall rise Respiratory Respiratory exam: Present normal lung sounds bilaterally Cardiovascular Cardiovascular exam: Present regular rate, normal rhythm and normal heart sounds Abdominal Exam Abdominal exam: Present soft, tenderness and normal bowel sounds Abdominal tenderness: Present epigastrium, diffuse and mild; Absent RUQ or RLQ Extremities Exam Extremities exam: Present normal inspection and full ROM Back Exam Back exam: Present normal inspection, full ROM and vertebral tenderness Neurological Exam Neurological exam: Present alert, oriented X3 and CN II-XII intact Psychiatric Psychiatric exam: Present normal affect and normal mood Skin Skin exam: Present warm, dry, intact and normal color Course Quality Measures none Orders Category Date Time Status Insert IV STAT Care 12/23/24 09:13 Active XR lumbar spine 2-3V Stat Exams 12/23/24 07:07 Completed CBC Stat Lab 12/23/24 08:00 Completed CMP [Comprehensive Metabolic Panel] Stat Lab 12/23/24 08:00 Completed HCG Qualitative,Urine Stat Lab 12/23/24 07:17 Completed UA, C/S IF [Urinalysis, C/S if Indicated] Stat Lab 12/23/24 07:17 Completed Urine Culture Stat Lab 12/23/24 07:17 Received Sodium Chloride 0.9% 1000 ml [Ns] 1,000 ml Med 12/23/24 09:13 Discontinued IV 999 mls/hr Sodium Chloride 0.9% 1000 ml [Ns] 1,000 ml Med 12/23/24 09:13 Discontinued IV 999 mls/hr Vital Signs Vital signs: Vital Signs Temperature 97.6 F 12/23/24 06:47 Pulse Rate 120 H 12/23/24 06:47 Respiratory Rate 18 12/23/24 06:47 Blood Pressure 153/98 H 12/23/24 06:47 Pulse Oximetry (%) 98 12/23/24 06:47 Oxygen Delivery Method Room Air 12/23/24 06:47 Back Pain / Injury MDM Narrative MDM Narrative:: 39-year-old female with no known medical history presents to the emergency room with a chief complaint of lower lumbar back pain and abdominal pain x 4 days Patient is hemodynamically stable and in no apparent distress. Physical examination shows a soft nontender abdomen. Patient has tenderness to her lumbar back. Patient denies any trauma or injury. X-ray was completed and was negative for any acute fractures or dislocations CBC CMP were completed and the CMP shows a glucose of 496. 2 L of normal saline were given and the patient's blood sugar dropped down to 289. Patient states she has not been compliant with her diabetic medication. The patient was educated that she needs to follow-up with her primary care provider and begin to take her metformin medication that she has at home. Patient was discharged and educated to follow-up with primary care provider in the next 24 to 48 hours and return to the emergency room for any evidence of worsening signs or symptoms Patient data External records reviewed:: [facility] previous records Clinical information provided by:: patient Social determinants that could affect healthcare access:: none Patient has the following chronic illnesses:: No chronic illness How is presenting disease/condition affected by chronic disease/condition?: no chronic disease Evaluation data The following diagnostics were reviewed and interpreted by me:: lab results and radiology exam(s) Lab and/or radiology exams considered but not ordered:: Labs and radiology exams considered and ordered Interpretation Summary: Lumbar [id number]: No lumbar fracture Adequate alignment lumbar vertebral bodies on the lateral view Mild disc narrowing L4-L5 Moderate disc narrowing L5-S1 IMPRESSION: Moderate disc narrowing L5-S1 Medications / Prescriptions Medications or Prescriptions considered but not ordered:: Medication given Medication administrations:: Medication Administration History Discontinued Medications Sodium Chloride (Ns) 1,000 mls @ 999 mls/hr IV .Q1H1M ONE Stop: 12/23/24 10:13 Last Admin: 12/23/24 09:43 Dose: 999 mls/hr Documented By: OA Sodium Chloride (Ns) 1,000 mls @ 999 mls/hr IV .Q1H1M ONE Stop: 12/23/24 10:13 Last Admin: 12/23/24 09:44 Dose: 999 mls/hr Documented By: OA Medication given Consultations Consultation(s) initiated? (list below): No Diagnosis Differential diagnosis back pain/injury: sciatica, strain of lumbar region and other (Gastroenteritis/urinary tract infection/hyperglycemia) Most likely diagnosis given after review of the tests above:: Hyperglycemia Admission Indicated Admission indicated?: not indicated Admission Request Was there a request for admission?: No Disposition Plan Disposition Plan: Discharge Discharge Attestation Discharge Attestation: The patient and all family members were given an opportunity to ask questions and understood the discharge instructions. Discharge instructions specifically effects, indications for sooner follow up or return to the emergency department, and the expected course of current diagnosis. Patient condition: Stable Discharge Plan Plan Patient Disposition: HOME (Self Care) Discharge Disposition comment: Stable Prescriptions/Referrals Prescriptions/Med Rec: No Action metformin 500 mg tablet 500 mg PO BIDWMEAL Qty: 60 0RF metformin 1,000 mg tablet 1,000 mg PO BID Qty: 30 1RF cetirizine-pseudoephedrine 5-120 mg tablet extended release 12 hr 1 tab PO BID Qty: 14 0RF guaifenesin 100 mg/5 mL liquid 200 mg PO Q4H PRN (Reason: cough) Qty: 473 0RF benzonatate 100 mg capsule 100 mg PO TID Qty: 14 0RF ibuprofen 600 mg tablet 600 mg PO Q6H Qty: 30 0RF azithromycin 500 mg tablet See Rx Instructions .ROUTE .COMPLEX Qty: 6 0RF Rx Instructions: take 500 mg today (day 1), then 250 mg for 4 days (days 2-5) Referrals: Temporary Provider,ED [Physician] - In 1 week Problem List Clinical Impression: Acute hyperglycemia, Back strain Patient/Caregiver Discharge Instructions Education Materials: ED Back Sprain/Strain, ED Diabetes with High Blood Sugar Additional Instructions: Please follow-up with your primary care provider in the next 24 to 48 hours Your blood sugar was very elevated. Fluids were given which significantly decreased your blood pressure. Please continue to take your diabetic medication. Please follow-up with your primary care provider for further titration of your diabetic medication For any evidence of worsening signs or symptoms return to the emergency room immediately Print Language: Belarusian Stand Alone Forms: Anabella Award Info., Patient Portal Info Letter PA/ANSON Supervising Physician PA/ANSON Supervising Physician: Dr. CARNEY
[2024-12-23 07:37] LABS: Collection Type, Urine Clean Catch
[2024-12-23 08:01] LABS: HCG Qualitative,Urine Negative
[2024-12-23 08:04] LABS: Bacteria,Urine 1+; Bilirubin,Urine Negative (Negative); Blood,Urine Negative (Negative); Clarity,Urine Clear (Clear/Hazy); Color,Urine Lt-Yellow (Lt Yel-Yel); Glucose, Urine 4+ (Negative); Hyaline Casts,Urine < 1 /hpf (0-1); Ketones,Urine Negative (Negative); Leukocyte Esterase,Urine Negative (Negative); Nitrite,Urine Negative (Negative); PH,Urine 6.5 (5.0-7.0); Protein,Urine Negative (Neg - Trace); RBC,Urine 3 /hpf (0-3); Specific Gravity,Urine 1.040 (1.001-1.035); Squamous Epithelial Cell,Urine 6 /hpf (0-5); Urobilinogen,Urine Negative mg/dL (0.0-1.0); WBC,Urine 6 /hpf (0-5)
[2024-12-23 08:11] LABS: Basophils # (Auto) 0.0 Thou/mm3 (0.0-0.2); Basophils % (Auto) 0 % (0-2.5); Eosinophils # (Auto) 0.2 Thou/mm3 (0.0-0.5); Eosinophils % (Auto) 2 % (0-10); Hematocrit 38.0 % (36.0-46.0); Hemoglobin 11.9 g/dL (12.0-16.0); Immature Granulocytes Auto 0.03 Thou/mm3 (0.00-0.00); Lymphocytes # (Auto) 2.2 Thou/mm3 (1.0-4.8); Lymphocytes % (Auto) 27 % (10-50); Mean Corpuscular HGB Conc 31.3 g/dl (31.0-37.0); Mean Corpuscular Hemoglobin 23.2 pg (25.0-35.0); Mean Corpuscular Volume 74 fL (80-100); Monocytes # (Auto) 0.5 Thou/mm3 (0.0-0.8); Monocytes % (Auto) 7 % (0-12); Neutrophils # (Auto) 5.1 Thou/mm3 (1.8-7.7); Neutrophils % (Auto) 63 % (37-80); Nucleated Red Blood Cell # 0.00 Thou/mm3 (0.00-0.00); Nucleated Red Blood Cell % 0 /100 WBC (0); Platelet Count 566 Thou/mm3 (140-440); RDW Standard Deviation 39.4 fL (36.4-46.3); Red Blood Count 5.14 Miln/mm3 (4.00-5.20); White Blood Count 8.0 Thou/mm3 (3.6-11.0)
[2024-12-23 08:18] LABS: Culture Indicated,Urine Yes
[2024-12-23 08:40] LABS: Alanine Aminotransferase 14 U/L (10-49); Albumin, Serum 4.1 gm/dL (3.5-5.0); Albumin/Globulin Ratio 1.3 (1.2-2.2); Alkaline Phosphatase 208 U/L (46-116); Anion Gap 11 (7-16); Aspartate Amino Transferase 15 U/L (0-34); BUN/Creatinine Ratio 12 Ratio (12-20); Bilirubin,Total 0.6 mg/dL (0.3-1.2); Blood Urea Nitrogen 11 mg/dL (9-23); Calcium 9.0 mg/dL (8.3-10.6); Calcium (Corrected) 9.0 mg/dL (8.5-10.1); Carbon Dioxide 28.0 mMol/L (20.0-31.0); Chloride 94 mMol/L (98-107); Creatinine (Component) 0.9 mg/dL (0.6-1.3); Estimated Creatinine Clearance 93.3 mL/min (>60); Globulin 3.1 gm/dL (2.3-3.5); Osmolality,Calculated 287 (275-295); Potassium 4.1 mMol/L (3.4-5.1); Sodium 133 mMol/L (136-145); Total Protein 7.2 gm/dL (5.7-8.2); eGFR > 60 See Note
[2024-12-23 08:46] LABS: Glucose 488 mg/dL (74-106)
[2024-12-23] MEDS: SODIUM CHLORIDE 0.9% 1000 ML 1,000 ML 999 ML IV ×2 (09:43→09:44)
[2024-12-23 11:00] VITALS: BP 128/82; PULSE 78; RESP 16; O2SAT 99
== END 2024-12-23 11:00 | disposition home or self-care (01) ==
PROVIDERS: Nurse Practitioner Family; Emergency Provider Emergency Medicine; PCP Nurse Practitioner Family
DX: S39.012A Strain of muscle, fascia and tendon of lower back, initial encounter (principal); E11.65 Type 2 diabetes mellitus with hyperglycemia; Z79.84 Long term (current) use of oral hypoglycemic drugs
CPT/HCPCS: 36415; 72100; 80053; 81001; 81025; 85025; 87077; 87086; 87186; 99283; J7030